=== PATIENT | male | born 1940 | race Caucasian/White ===

== ENCOUNTER 2023-08-29 06:38 | Day surgery (SDC) | payer OTHER ==
[2023-08-22 14:14] LABS: Absolute Eosinophils 0.7 K/uL (0-0.5); Absolute Lymphocytes (CBC) 1.2 K/uL (0.7-4.9); Absolute Monocytes 0.6 K/uL (0.1-1.3); Absolute Neutrophil 3.1 K/uL (1.8-8.0); Basophils % 0.8 % (0-1.3); Eosinophils % 11.7 % (0-4.4); Hematocrit 32.7 % (39.6-49.0); Hemoglobin 10.7 g/dL (13.6-17.9); Lymphocytes % 21.5 % (15.3-44.8); MCH 29.1 pg (27.0-35.0); MCHC 32.9 g/dL (32.0-36.0); MCV 88.5 fL (80-100); MPV 8.8 fL (7.6-11.3); Monocytes % 10.9 % (3.3-12.3); Neutrophils % 55.1 % (41.7-73.7); Platelets 188 thou/uL (152-406); RBC Red Blood Cell Count 3.69 M/uL (4.33-5.43); Red Cell Distribution Width 18.3 % (12.1-15.2)
[2023-08-22 14:22] LABS: Anion Gap 8.6 mEq/L (5.0-15.0); Potassium 4.6 mEq/L (3.5-5.1)
[2023-08-22 14:36] LABS: PT Prothrombin Time 14.1 SECONDS (9.5-12.5); PTT, Activated Partial Thromb 39.3 SECONDS (24.3-36.9); Protime INR 1.29
[2023-08-29] MEDS ORDERED: Ringers Lactate 1,000 ML IV ONE (06:53)
[2023-08-29] MEDS ORDERED: ONDANSETRON 4 MG/2 ML VIAL ONE (07:15)
[2023-08-29] MEDS ORDERED: propofoL 200 MG/20 ML VIAL IV ONE (07:16)
[2023-08-29] MEDS ORDERED: FENTANYL CITR 100 MCG/2 ML ONE (07:16)
[2023-08-29] MEDS ORDERED: MIDAZOLAM HCL 2 MG/2 ML INJ ONE (07:16)
[2023-08-29] MEDS: CEFAZOLIN SODIUM 2 GM/VIAL ONE (07:33)
[2023-08-29] MEDS ORDERED: EPHEDRINE SULF 50 MG/ML VIAL ONE (07:44)
[2023-08-29] MEDS ORDERED: ROCURONIUM 50 MG/5 ML VIAL IV ONE (07:53)
[2023-08-29] MEDS ORDERED: PHENAZOPYRIDINE 100MG TAB PO ONE (08:36)
[2023-08-29] MEDS ORDERED: CODEINE 30MG/APAP 300MG TAB PO PRN (08:36)
--- NOTE | 2023-08-29 08:53 | RAD REPORT ---
EXAM DESCRIPTION: RAD - Urethrocystogrphy Retrograde - 08/29/2023 8:30 am CLINICAL HISTORY: ICD N 20.0 FINDINGS: Eight fluoroscopic spot images obtained. Fluoroscopy time 0.2 minutes Left ureter was cannulated and contrast administered. Subsequently an ureteral stent was placed. Exam ination was performed by Dr Ardon
[2023-08-29 09:42] VITALS: O2SAT 97
[2023-08-29 10:43] VITALS: BP 144/53; TEMP 97.8
--- NOTE | 2023-08-29 10:45 | OP ---
Surgeon: MONI LKEIN Preoperative Diagnoses: 1.Left renal filling defect. 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 Postoperative Diagnoses: 1.Left renal filling defect. 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 3.False passage of prostatic urethra. Principal Procedures: 1.Cystoscopy. 2.Right ureteral stent extraction. 3.Left ureteroscopy with pyeloscopy. 4.Left ureteral stent exchange. 5.Urethral Park catheter placement. Indication For Procedure: Mr. Damico presented to the [facility]rology Clinic with gross hematuria and unde rwent cystoscopic evaluation revealing the presence of a bladder tumor overlying the right ureteral o rifice. He subsequently underwent resection of that bladder tumor and retrograde pyelography studies bilaterally, which revealed the presence of a suspected left renal pelvic filling defect with dimini shed filling of some of the calices. As a result, attempts to access his upper tract on the left ure teroscopically at that time were thwarted due to stenosis of the ureteral orifice and ureteral spasm; so a stent was placed and he was scheduled to return today for definitive evaluation. Of note, the patient was given intravesical gemcitabine following the tumor resection on the first occasion. Procedure In Detail: The patient was consented in the preoperative holding area before being transfe rred to the operative suite where general anesthesia was induced. He was given Ancef 2 g IV antimicr obial prophylaxis, and pneumo boots were provided for DVT prophylaxis. He was placed in the lithotom y position, padded and secured to the table appropriately, and his genitalia was prepped with Hibicle ns and draped in standard fashion. The case was begun using a 22-Paraguayan rigid cystoscope to traverse the urethra and enter the bladder, but there was significant difficulty getting through the prostati c urethra. I noticed along the entirety of the ventral aspect of the urethra, there was evident heal ing trauma and in the prostatic urethra, there was a significant false passage that had been created. This resulted in difficulty navigating beyond a significantly elevated bladder neck and getting int o his bladder even with direct vision rigid cystoscopy. However, with some difficulty, I was able to significantly angulate the scope and get past the point of bladder neck obstruction and enter the bl adder. I then decompressed it of fluid and urine and surveyed the bladder in its entirety. No papil branden mucosal lesions were noted throughout. The right ureteral stent was grasped and delivered using an alligator grasper. The left ureteral stent was then visualized and the tip of the stent was gras ped and the stent was delivered to the meatus, leaving the proximal end of the stent in the mid dista l ureter. I thus advanced a Sensor wire via the stent, coiling it within the putative collecting sys tem on the left side. After placement of the Sensor wire and removing the left ureteral stent, I the n passed a dual-lumen catheter over the Sensor wire into the mid distal ureter. I then performed a r etrograde pyelogram. Left retrograde pyelography: Using a 70:30 mixture of Omnipaque and saline, contrast was injected via the second lumen of the dual -lumen catheter and did propagate up the distal into the mid and proximal ureter before entering the renal pelvis and calices. On this occasion, no filling defect was noted. There was some diminished filling of some of the calices, but the previously observed renal pelvic filling defect this time was not seen. However, given the history of urothelial carcinoma of the bladder and the previous treatm ent with gemcitabine with the stents in place, I recognized the potential for partial treatment of a tumor in the renal pelvis and recommended we proceed with ureteroscopic evaluation. I then passed a Bentson guidewire via the second lumen of the dual-lumen catheter and coiled it in th e collecting system alongside the Sensor wire. I removed the dual-lumen catheter and passed a flexib le ureteroscope over the Bentson guidewire all the way into the collecting system. I then surveyed e ach of the calices of the collecting system and observed what were 2 regions of stenotic infundibulum present in the upper pole posterior and the upper mid pole calices. I was able to look beyond the p oint of stenotic infundibulum to note the absence of any mucosal lesions at this point. The remainde r of the kidney including the renal pelvis and all of the remaining calices were without mucosal lesi on or stone. As a result, I surveyed down into the proximal down through the mid and distal ureter o n the way out, and identified no additional tumors. I thus backloaded the cystoscope over the safety wire and passed a 6-Paraguayan x 26 cm double-J ureteral stent with a coil observed fluoroscopically in the upper pole of the kidney and 1 cystoscopically formed in the bladder. The stent was left on its tether and after removing the cystoscope and ensuring all clots were removed out of his bladder, I th en backfilled the bladder in order to replace a new 18-Paraguayan coude catheter, which I placed with eas e into his bladder. Approximately 10 cc of sterile water was placed in the balloon, and the catheter was connected to leg bag drainage. I then tied the stent tether to the urethral Park catheter via the balloon port, and used Steri-Strips to tape it in place. The patient was then taken out of the l ithotomy position, awakened from general anesthesia, transferred to a stretcher, and then transferred to the recovery room in good condition. Complications: None. Discharge Disposition: He has a left ureteral stent that is tethered via a string that is tied to a urethral Park catheter. I would like for him to follow up in the Urology Clinic on either or Monday to have the urethral Park catheter and the tethered ureteral stent removed at once. Since the stent is secured to the catheter, upon deflating the catheter and pulling it, the stent should c ome with the catheter and be removed in its entirety. If the patient has run out of oral antimicrobi al therapy, he may be given a dose of Cipro or Levaquin at the time of catheter removal and stent rem oval. He should not be given Keflex given his penicillin allergy and the potential for cross-reactiv ity. Subsequent followup should be established 3 months later in the Urology Clinic for cystoscopy jackelyn light his history of urothelial carcinoma of the bladder. EMILY/MODL Voice ID: [id number] Report ID: [id number]
== END 2023-08-29 10:15 | disposition home or self-care (01) ==
LOC: OR 06:38
PROVIDERS: ATTEND Urology
PROC: 0TP98DZ Removal of Intraluminal Device from Ureter, Via Natural or Artificial Opening Endoscopic (ICD-10-PCS; 2023-08-29)
PROC: 0T778DZ Dilation of Left Ureter with Intraluminal Device, Via Natural or Artificial Opening Endoscopic (ICD-10-PCS; principal; 2023-08-29 07:30)
DX: N20.0 Calculus of kidney (principal); Z85.51 Personal history of malignant neoplasm of bladder
CPT/HCPCS: 52332; 52351; 87088; 85025; 87086; 80048; 36415; 85610; 85730; 74450; 51610; J2704; J2250; J3010; J2405; J7120